=== PATIENT | female | born 1960 | race Asian ===

== ENCOUNTER 2017-01-29 13:54 | Emergency (ER) | payer OTHER ==
[~2017-01-29] VITALS: Ht 154.9 cm; Wt 59.1 kg
[~2017-01-29 13:54] MED LIST: LISI5TAB; PROP10 PO
[2017-01-29] MEDS ORDERED: PRIM50 PO (14:03)
[2017-01-29] MEDS ORDERED: METF500T4 PO (14:03)
[2017-01-29] MEDS ORDERED: PRAV10TA39 PO (14:03)
[2017-01-29] MEDS ORDERED: LOSA25TA21 PO (14:03)
[2017-01-29] MEDS ORDERED: METO25TA6 PO (14:03)
[2017-01-29 14:07] LABS: GLUCOSE,POINT OF CARE 106 MG/DL (70-110)
[2017-01-29 15:18] LABS: BASOPHILS % (AUTO) 0.3 % (0.0-2.0); EOSINOPHILS % (AUTO) 2.9 % (1.0-6.0); HEMATOCRIT 42.1 % (36-46); HEMOGLOBIN 13.9 g/dL (12.0-16.0); LYMPHOCYTES # (AUTO) 2.4 K/uL (1.0-4.8); LYMPHOCYTES % (AUTO) 35.2 % (22.0-44.0); MEAN CORPUSCULAR HEMOGLOBIN 29.1 pg (26.0-34.0); MEAN CORPUSCULAR VOLUME 88 fL (80-100); MONOCYTES # (AUTO) 0.6 K/uL (0.1-1.0); MONOCYTES % (AUTO) 8.9 % (2.0-9.0); NEUTROPHILS # (AUTO) 3.6 K/uL (1.8-7.7); NEUTROPHILS % (AUTO) 52.7 % (40.0-70.0); PLATELET COUNT (AUTO) 242 K/uL (150-450); RED BLOOD CELL COUNT(AUTO) 4.77 MIL/uL (4.00-5.20); RED CELL DISTRIBUTION WIDTH 12.8 % (11.5-14.5); WHITE BLOOD COUNT (AUTO) 6.8 K/uL (4.5-11.0)
[2017-01-29 15:21] LABS: ANION GAP 11 mmol/L (8-16); CALCIUM, TOTAL 9.7 mg/dL (8.8-10.5); CARBON DIOXIDE 27 mmol/L (22-29); CHLORIDE 103 mmol/L (98-107); CREATININE 0.67 mg/dL (0.60-1.30); GLOMERULAR FILTR. RATE CALC > 60 mL/min (>60); POTASSIUM 4.1 mmol/L (3.5-5.1); SODIUM SERUM 141 mmol/L (136-145); UREA NITROGEN, BLOOD 10 mg/dL (7-18)
[2017-01-29 15:40] LABS: APPEARANCE,URINE CLEAR (CLEAR); GLUCOSE, URINE (UA) NEGATIVE (NEGATIVE); KETONES,URINE NEGATIVE (NEGATIVE); LEUKOCYTE ESTERASE ,URINE NEGATIVE (NEGATIVE); OCCULT BLOOD,URINE NEGATIVE (NEGATIVE); PROTEIN,URINE NEGATIVE (NEGATIVE)
[2017-01-29 15:41] LABS: ADD UA MICROSCOPIC NO
[2017-01-29 15:46] LABS: ALANINE AMINOTRANSFERASE 93 U/L (12-78); ALBUMIN 3.9 g/dL (3.4-5.0); ASPARTATE AMINOTRANSFERASE 38 U/L (15-37); BILIRUBIN,TOTAL 0.4 mg/dL (0.1-1.0); CREATINE KINASE MB 1.3 ng/mL (0-5); CREATINE KINASE, TOTAL 107 U/L (26-192)
[2017-01-29] MEDS ORDERED: ONDANSETRON HCL 4 MG TABLET PO ONE (16:45)
[2017-01-29] MEDS ORDERED: ACETAMINOPHEN 500 MG TABLET PO ONE (16:45)
[2017-01-29] MEDS ORDERED: MORPHINE SULFATE 4 MG/ML SYRINGE IVP ONE (16:45)
[2017-01-29] MEDS ORDERED: ONDANSETRON HCL 4 MG/2 ML VIAL IVP ONE (16:45)
[2017-01-29 17:12] VITALS: BP 134/101
== END 2017-01-29 17:57 | disposition home or self-care (01) ==
LOC: EMS 13:55
DX: I10 Essential (primary) hypertension (principal); R51 Headache; E78.00 Pure hypercholesterolemia, unspecified
CPT/HCPCS: 36415; 70450; 71010; 80053; 81003; 82550; 82553; 82962; 84484; 85025; 99285; Q0162